=== PATIENT | female | born 2000 | race Caucasian/White ===

== ENCOUNTER 2024-02-19 12:33 | Day surgery (SDC) | payer BC ==
[2024-02-18 10:15] VITALS: BMI 22.8
[2024-02-19 14:36] VITALS: BP 110/68; PULSE 82; RESP 17; TEMP 97.3
== END 2024-02-19 14:36 | disposition home or self-care (01) ==
LOC: FASU-ENDO 12:33
PROVIDERS: ATTEND Internal Medicine Gastroenterology
PROC: 0DJD8ZZ Inspection of Lower Intestinal Tract, Via Natural or Artificial Opening Endoscopic (ICD-10-PCS; principal; 2024-02-19 13:09)
DX: R10.9 Unspecified abdominal pain (principal); R19.7 Diarrhea, unspecified; K64.1 Second degree hemorrhoids
CPT/HCPCS: 81025